=== PATIENT | female | born 1975 | race African-American/Black ===

== ENCOUNTER 2019-04-29 10:11 | Emergency (ER) | payer SELFPAY ==
--- NOTE | ~2019-04-29 | XR_ITS ---
EXAMINATION: XR chest 2V 04/29/2019 11:35 INDICATION: Comparison to multiple prior studies sequentially, with oldest reviewed study dated 05/31. PROCEDURE: 2 view chest COMPARISON: Comparison to multiple prior studies sequentially, with oldest reviewed study dated 06/2018. FINDINGS: The lungs are clear. The cardiomediastinal silhouette is within normal limits. There are no pleural effusions. There is no pneumothorax suspected. IMPRESSION: 1: NO ACUTE CARDIOPULMONARY DISEASE. Reviewed, dictated and finalized at location A.
[2019-04-29 10:38] VITALS: BP 136/56; PULSE 87; RESP 20; TEMP 36.7; O2SAT 98
--- NOTE | 2019-04-29 11:16 | ED.URI ---
HPI - URI/Sore Throat General Chief Complaint: Upper Respiratory Infection Stated Complaint: neck pain, fever Time Seen by Provider: 04/29/19 11:13 Source: patient and RN notes reviewed Mode of arrival: ambulatory Limitations: no limitations History of Present Illness HPI Narrative: Pt is a 43 y/o female presenting to the ED c/o fever. Pt reports she started experiencing a subjective fever for 3 days. Pt states she last felt a fever this morning around 0300, but notes she has never checked her temperature. Pt also reports cough, diaphoresis, chills, ST, rhinorrhea, wheezing, and SOB, but denies otalgia or vomiting. Pt notes today she has taken Tylenol at 0300 and 0600, and Theraflu at 0900. Pt states she works as a [employer]. Pt reports Hx's of HTN and Gastritis. Pt notes she has never been a smoker. Pertinent past history: other (HTN; Gastritis) Onset (ago): day(s) (3) Associated symptoms: chills, diaphoresis, rhinorrhea, sore throat, cough, shortness of breath and other (Wheezing) Related Data Allergies Allergy/AdvReac Type Severity Reaction Status Date / Time No Known Allergies Allergy Unknown Verified 03/27/18 21:35 Review of Systems Review of Systems: All systems reviewed & are unremarkable except as noted in HPI and below Constitutional: Constitutional: Reports chills and Reports fever(s) (Subjective) ENT: Denies otalgia, Reports sore throat and Reports other (Rhinorrhea) Cardiovascular: Cardiovascular: Reports diaphoresis Respiratory: Respiratory: Reports cough, Reports dyspnea and Reports wheezing Gastrointestinal: Gastrointestinal: Denies vomiting PMFSH Past Medical History Medical History Gastritis HTN (hypertension) Surgical History Surgical History History of History of cholecystectomy Social History Social History Smoking status: Never smoker Gender identity (if verbalized by the patient): Female Exam Narrative: Exam Narrative: GENERAL: Well-appearing, well-nourished, and in no acute distress. HEAD: Normocephalic, atraumatic EYES: PERRLA and EOMI, conjunctiva clear without discharge EARS: TM's clear bilaterally without erythema or dullness NOSE: Nares clear, no rhinorrhea or epistaxis THROAT:Mucous membranes moist, Oropharynx normal without erythema, exudate, peritonsillar swelling or fluctuance NECK: Supple, without lymphadenopathy or mass RESPIRATORY: No respiratory distress, Airway patent, Respirations non-labored, Clear to auscultation without rales, rhonchi or wheeze, diminished bilaterally HEART: Regular rate and rhythm. No murmur heard. Normal peripheral pulses. ABDOMEN: Soft, nontender, nondistended, normal active bowel sounds. No masses. No rebound or guarding, No organomegaly. EXTREMITIES: No edema, normal strength with full range of motion. SKIN: Warm, dry, normal color without rash NEURO: Alert and oriented x3. CN 2-12 grossly intact. No focal deficits. PSYCH: Normal mood and affect. Course Reevaluation(s) Reevaluation #1: I have discussed with patient that labs are unremarkable and she has viral uri. I had discussed discharge plan and managment. Date: 04/29/19 Time: 11:48 Vital Signs Vital signs: Vital Signs Temperature 98.0 F 04/29/19 10:38 Pulse Rate 87 04/29/19 10:38 Respiratory Rate 20 04/29/19 10:38 Blood Pressure 136/56 L 04/29/19 10:38 Pulse Oximetry 98 04/29/19 10:38 Temperature 98.0 F 04/29/19 11:59 Pulse Rate 80 04/29/19 11:59 Respiratory Rate 20 04/29/19 11:59 Blood Pressure 120/77 04/29/19 11:59 Pulse Oximetry 99 04/29/19 11:59 MDM - URI/Sore Throat Lab Data Labs: Influenza A Screen Negative Reference Range: Negative Influenza B Screen Negative Reference Range: Negative Strep Screen Presumptive Negative *(Reference Ra
[2019-04-29 11:59] VITALS: BP 120/77; PULSE 80; RESP 20; TEMP 36.7; O2SAT 99
== END 2019-04-29 12:00 | disposition home or self-care (01) ==
PROVIDERS: Emergency Provider General Practice; PCP Internal Medicine Infectious Disease
DX: J06.9 Acute upper respiratory infection, unspecified (principal)
CPT/HCPCS: 71046; 87081; 87804; 87880; 99283

== ENCOUNTER 2020-08-21 05:37 | Emergency (ER) | payer BC, SELFPAY ==
[2020-08-21 05:44] VITALS: BP 159/108; PULSE 102; RESP 18; TEMP 36.6; O2SAT 98
--- NOTE | 2020-08-21 06:13 | ED.URI ---
HPI - URI/Sore Throat General Chief Complaint: Upper Respiratory Infection Stated Complaint: sore throat x 2 days,cough Time Seen by Provider: 08/21/20 06:06 Source: patient and RN notes reviewed Mode of arrival: ambulatory Limitations: no limitations History of Present Illness HPI Narrative: THis is a 44 year old female who presents for evaluation of URI symptoms for 2 days. She reports runny nose, sinus drainage, sore throat and cough. She denies fever or chills. She states she has been gargling and taking zyrtec without relief. Related Data Home Medications Medication Instructions Recorded Confirmed aspirin 08/21/20 08/21/20 cholecalciferol (vitamin D3) 08/21/20 famotidine 08/21/20 hydrochlorothiazide 08/21/20 losartan 08/21/20 losartan 08/21/20 potassium chloride meq PO 08/21/20 Allergies Allergy/AdvReac Type Severity Reaction Status Date / Time hydrocodone AdvReac Gastrointestinal Verified 08/21/20 05:47 Upset Review of Systems Review of Systems: All systems reviewed & are unremarkable except as noted in HPI and below Constitutional: Constitutional: Denies chills and Denies fever(s) Eyes: Eyes: Denies change in vision ENT: Reports nasal congestion and Reports sore throat Cardiovascular: Cardiovascular: Reports chest pain (chronic) Respiratory: Respiratory: Reports cough and Reports dyspnea (chronic due to asthma) Gastrointestinal: Gastrointestinal: Denies abdominal pain, Denies nausea and Denies vomiting PMF Past Medical History Medical History (Updated 08/21/20 @ 06:29 by Sushma Watters MD) Gastritis HTN (hypertension) Surgical History Surgical History History of History of cholecystectomy Social History Social History Smoking status: Never smoker Gender identity (if verbalized by the patient): Female Exam Const: General: no acute distress and alert Orientation/consciousness: patient oriented x3 HENMT: Head: normocephalic and atraumatic Ears: TM's normal bilaterally Face and sinus: sinuses nontender and face symmetric Mouth: Yes Normal oral and palatal mucosa present, Yes lip normal, Yes oropharynx normal, Yes moist mucous membranes, No trismus and No restricted motion Throat: tonsils normal, uvula midline, postnasal drainage and no uvular edema Eyes: EOM: EOMs intact bilaterally Resp: Effort & Inspection: normal respiratory effort and no retractions Auscultation: clear to auscultation bilaterally Cardio: Rate: regular rate Rhythm: regular rhythm Heart sounds: no murmurs Skin: General skin exam: normal color Rashes: no rashes Neuro: General: patient oriented x3, moves all extremities and No CN's II-XI intact bilaterally Course Reevaluation(s) Reevaluation #1: I have discussed with patient strep is negative and her URI symptoms are mostly viral. She states she does not think she has covid and she is vaccinated. She understands treatment is symptom management. Date: 08/21/20 Time: 06:27 Vital Signs Vital signs: Vital Signs Temperature 97.9 F 08/21/20 05:44 Pulse Rate 102 H 08/21/20 05:44 Respiratory Rate 18 08/21/20 05:44 Blood Pressure 159/108 H 08/21/20 05:44 Pulse Oximetry 98 08/21/20 05:44 Temperature 97.9 F 08/21/20 05:44 Pulse Rate 71 08/21/20 06:40 Respiratory Rate 14 08/21/20 06:40 Blood Pressure 138/74 08/21/20 06:40 Pulse Oximetry 97 08/21/20 06:40 MDM - URI/Sore Throat Lab Data Labs: Strep Screen Presumptive Negative *(Reference Range: Negative)* Strep Screen Presumptive Negative *(Reference Range: Negative)* Discharge Plan Discharge Clinical Impression: Upper respiratory infection Qualifiers: URI type: unspecified viral URI Qualified Code(s): J06.9 - Acute u
[2020-08-21 06:40] VITALS: BP 138/74; PULSE 71; RESP 14; O2SAT 97
== END 2020-08-21 06:40 | disposition home or self-care (01) ==
PROVIDERS: Emergency Provider General Practice; PCP Internal Medicine Infectious Disease
DX: J06.9 Acute upper respiratory infection, unspecified (principal); Z79.82 Long term (current) use of aspirin; I10 Essential (primary) hypertension
CPT/HCPCS: 87081; 87880; 99283

== ENCOUNTER 2021-09-27 15:32 | Emergency (ER) | payer BC, SELFPAY ==
--- NOTE | ~2021-09-27 | XR_ITS ---
EXAM: XR toe 1st LT min 2V DATE: 09/27/2021 17:46 HISTORY: PAIN/BRUSING TO MEDIAL SIDE OF 1ST DIGIT X 6 MONTHS . COMPARISON: None available. FINDINGS: Normal mineralization. No fracture or dislocation. No lytic or blastic lesion. Mild scatte red degenerative changes. No erosion or periosteal change. Soft tissues within normal limits. IMPRESSION: No acute osseous finding in the left first toe. Reviewed, dictated and finalized at location K.
[2021-09-27 16:16] VITALS: BP 135/87; PULSE 88; RESP 14; TEMP 36.7; O2SAT 100
--- NOTE | 2021-09-27 17:57 | ED.LOWEXIN ---
HPI - Extremity Injury (Lower) General Chief Complaint: Extremity Injury, Lower Stated Complaint: L. toe pain Time Seen by Provider: 09/27/21 17:31 Source: patient Mode of arrival: ambulatory Limitations: no limitations History of Present Illness HPI Narrative: This is a 45 year old female that presents to the ER for left great toe pain ongoing for several months. Reports acute worsening today. No recent injury or trauma. Reports some swelling to the area. Pain with even light touch. Denies fevers or erythema. Related Data Home Medications Medication Instructions Recorded Confirmed aspirin 81 mg tablet,delayed 08/21/20 08/21/20 release cholecalciferol (vitamin D3) 1,250 08/21/20 mcg (50,000 unit) capsule famotidine 40 mg tablet 08/21/20 hydrochlorothiazide 25 mg tablet 08/21/20 losartan 25 mg tablet 08/21/20 losartan 50 mg tablet 08/21/20 potassium chloride 20 mEq meq PO 08/21/20 tablet,extended release(part/cryst) Allergies Allergy/AdvReac Type Severity Reaction Status Date / Time hydrocodone AdvReac Gastrointestinal Verified 09/27/21 17:49 Upset Review of Systems Review of Systems: CONSTITUTIONAL: Denies fever SKIN: Denies rash MUSCULOSKELETAL: Reports joint pain, and myalgia. NEUROLOGIC: Denies numbness All systems reviewed & are unremarkable except as noted in HPI and below PMFSH Past Medical History Medical History (Updated 09/27/21 @ 19:18 by Farideh Brumfield PA-C) Gastritis HTN (hypertension) Surgical History Surgical History History of History of cholecystectomy Social History Social History Smoking status: Never smoker Gender identity (if verbalized by the patient): Female Exam Narrative: GENERAL: Well-appearing, well-nourished, and in no acute distress. HEAD: Normocephalic, atraumatic. EYES: EOMI. EXTREMITIES: Normal range of motion. No edema, erythema or warmth. Left first MTP joint tender to palpation. Normal DP pulses. Normal sensation SKIN: Warm, dry, no rash. NEURO: No focal deficits. Alert and oriented x3. PSYCH: Normal mood and affect Course Vital Signs Vital signs: Vital Signs Temperature 98.0 F 09/27/21 16:16 Pulse Rate 88 09/27/21 16:16 Respiratory Rate 14 09/27/21 16:16 Blood Pressure 135/87 09/27/21 16:16 Pulse Oximetry 100 09/27/21 16:16 Oxygen Delivery Room Air 09/27/21 16:16 Temperature 98.0 F 09/27/21 16:16 Pulse Rate 88 09/27/21 16:16 Respiratory Rate 14 09/27/21 16:16 Blood Pressure 135/87 09/27/21 16:16 Pulse Oximetry 100 09/27/21 16:16 Oxygen Delivery Room Air 09/27/21 16:16 MDM - Extremity Injury (Lower) MDM Narrative Medical decision making narrative: Patient presents to the emergency department for left great toe pain today. No recent injury or trauma. Patient is afebrile and nontoxic-appearing. CBC without leukocytosis. Metabolic panel with mild hypokalemia, patient given dose of potassium in the ED. Inflammatory markers are mildly elevated. Uric acid is high normal. Left first toe x-ray without acute osseous abnormalities. Patient was updated on case findings. Will be started on colchicine for probable gout flare. Unfortunately patient has history of gastritis, so is not able to take anti-inflammatories. Instructed to continue Tylenol as needed for pain at home. She is to follow-up with her primary care doctor and orthopedics. She was given warnings to return to the ER Lab Data Attestation: I reviewed the patient's lab results. Result diagrams: 09/27/21 18:07 09/27/21 18:07 Labs: Lab Results 09/27/21 09/27/21 Range/Units 18:07 18:07 WBC 9.2 (4.5-10.0) K/mm3 RBC 4.36 (4.2-5.4) M/mm3 Hgb 11.7 L (12.0-15.0) g/dL Hct 37.3 (37.0-47.0) % MCV 85.6 (80-100) fl MCH 26.8 (26-34) pg MCHC 31.4 L (32-36) g/d
[2021-09-27 18:13] LABS: Basophils Absolute Auto 0.1 K/mm3 (0.0-0.1); Basophils Percent Auto 0.7 % (0.2-1.2); Eosinophils Absolute Auto 0.2 K/mm3 (0-0.3); Eosinophils Percent Auto 2.5 % (0-4.4); Hematocrit 37.3 % (37.0-47.0); Hemoglobin 11.7 g/dL (12.0-15.0); Immature Granulocyte Absolute 0.04 K/mm3 (0.00-0.031); Immature Granulocyte Percent A 0.4 % (0-0.5); Lymphocytes Absolute Auto 2.72 K/mm3 (0.9-3.2); Lymphocytes Percent Auto 29.5 % (18.3-44.2); Mean Corpuscular HGB Conc 31.4 g/dl (32-36); Mean Corpuscular Hemoglobin 26.8 pg (26-34); Mean Corpuscular Volume 85.6 fl (80-100); Mean Platelet Volume 11.1 fl (7.4-10.4); Monocytes Absolute Auto 0.6 K/mm3 (0.1-0.6); Monocytes Percent Auto 6.8 % (2.6-8.5); Neutrophils Absolute Auto 5.5 K/mm3 (1.3-6.7); Neutrophils Percent Auto 60.1 % (45.5-73.1); Platelet Count Result 359 k/mm3 (150-375); Red Blood Count 4.36 M/mm3 (4.2-5.4); Red Cell Distribution Width 14.4 % (11.5-14.5); White Blood Count 9.2 K/mm3 (4.5-10.0)
[2021-09-27] MEDS: KETOROLAC 30 MG/ML VIAL (*BKC) IM (18:14)
[2021-09-27 18:25] LABS: Anion Gap 10 mmol/L (8-16); Blood Urea Nitrogen 13 mg/dL (7-17); CRP 1.5 mg/dL (<1.0); Calcium 9.3 mg/dL (8.4-10.2); Carbon Dioxide 30 mmol/L (22-30); Chloride 98 mmol/L (98-107); Estimated Glomerular Filt Rate > 60; Glucose 93 mg/dL (65-110); Potassium 3.1 mmol/L (3.4-5.0); Sodium 138 mmol/L (137-145); Uric Acid 7.5 mg/dL (2.5-7.5)
[2021-09-27 18:52] LABS: Erythrocyte Sedimentation Rate 40 mm/hr (0-20)
[2021-09-27] MEDS: POTASSIUM CHLORIDE 20 MEQ TABLET 40 MEQ PO (19:14)
[2021-09-27] MEDS: COLCHICINE 0.6 MG TABLET 1.2 MG PO (19:17)
[2021-09-27 19:35] VITALS: BP 130/84; PULSE 81; RESP 18; O2SAT 98
== END 2021-09-27 19:36 | disposition home or self-care (01) ==
PROVIDERS: Physician Assistant; Emergency Provider Emergency Medicine; PCP Internal Medicine Infectious Disease
DX: M79.675 Pain in left toe(s) (principal); I10 Essential (primary) hypertension
CPT/HCPCS: 36415; 73660; 80048; 84550; 85025; 85652; 86140; 96372; 99283; A9270; J1885

== ENCOUNTER 2021-09-28 21:32 | Emergency (ER) | payer BC, SELFPAY ==
[2021-09-28 21:42] VITALS: BP 146/91; PULSE 79; RESP 22; TEMP 36.4; O2SAT 98
--- NOTE | 2021-09-28 23:21 | ED.EXTPRO ---
HPI - Extremity Problem General Chief complaint: Extremity Problem,Nontraumatic Stated complaint: left foot pain, seen yesterday with gout Time Seen by Provider: 09/28/21 23:01 History of Present Illness HPI Narrative: 45-year-old female presenting the emergency department for evaluation of persistent foot pain. Patient was evaluated in the emergency department and diagnosed with gout. Patient has been taking Tylenol for pain control along with her colchicine but states that the pain has been persistent. Patient denies any worsening of the redness and denies any fevers. Patient denies any new injuries. Due to the patient's underlying gastritis she was not advised to use NSAIDs. Related Data Home Medications Medication Instructions Recorded Confirmed aspirin 81 mg tablet,delayed 08/21/20 08/21/20 release cholecalciferol (vitamin D3) 1,250 08/21/20 mcg (50,000 unit) capsule famotidine 40 mg tablet 08/21/20 hydrochlorothiazide 25 mg tablet 08/21/20 losartan 25 mg tablet 08/21/20 losartan 50 mg tablet 08/21/20 potassium chloride 20 mEq meq PO 08/21/20 tablet,extended release(part/cryst) Allergies Allergy/AdvReac Type Severity Reaction Status Date / Time hydrocodone AdvReac Gastrointestinal Verified 09/28/21 21:46 Upset Review of Systems Review of Systems: CONSTITUTIONAL: Denies fever, chills, or sweats. EYES: Denies visual changes, redness, or discharge. ENT: Denies rhinorrhea, congestion, sore throat, or otalgia. CARDIOVASCULAR: Denies chest pain, palpitations, or edema. RESPIRATORY: Denies cough or dyspnea. GASTROINTESTINAL: Denies abdominal pain, nausea, vomiting, or diarrhea. GENITOURINARY: Denies dysuria or hematuria. SKIN: Denies rash or itching. MUSCULOSKELETAL: Left great toe pain NEUROLOGIC: Denies headache, numbness, or weakness. PSYCHIATRIC: Denies anxiety or depression. [facility] Past Medical History Medical History (Updated 09/28/21 @ 23:28 by Nicolas Chavis MD) Gastritis HTN (hypertension) Surgical History Surgical History History of History of cholecystectomy Social History Social History Smoking status: Never smoker Gender identity (if verbalized by the patient): Female Exam Narrative: APPEARANCE: Well appearing, no pain, no distress, well-nourished. HEAD: normocephalic, atraumatic. EYES: PERRLA/EOMI, conjunctivae clear. NOSE: Normal no drainage NECK: Supple. No adenopathy, no masses. RESPIRATORY: Airway patent, respirations nonlabored. Clear to auscultation bilaterally, no rales, rhonchi, wheezing. CARDIOVASCULAR: Regular rate and rhythm without murmurs rubs or gallops. MUSCULOSKELETAL: Moves all extremities. Mild warmth associated with the base of the left great toe. No erythema. No significant edema of the foot. NEURO: Alert. Cranial nerves II through XII intact. Grossly intact SKIN: Warm, dry. Normal Color PSYCHIATRIC: Normal affect/mood. Course Course Emergency Course: Patient states she has had a previous adverse reaction of nausea when taking hydrocodone but states it does help with her pain control. Patient is willing to trial hydrocodone to see if this helps. Patient was provided [place] in the ED and also will be discharged with [place]. Patient was encouraged of close follow-up with her primary care physician. With patient will continue to take her colchicine. Patient was advised on reasons to return to the emergency department. All questions and concerns were addressed. Vital Signs Vital signs: Vital Signs Temperature 97.5 F L 09/28/21 21:42 Pulse Rate 79 09/28/21 21:42 Respiratory Rate 22 H 09/28/21 21:42 Blood Pressure 146/91 H 09/28/21 21:42 Pulse Oximetry 98 09/28/21 21:42 Oxygen Delivery Room Air 09/28/21 21:42 Temperature 97.5 F L 09/28/21 21:42 Pulse Rate 75 09/29/21 00:15 Respiratory Rate 18 09/29/21 00:15
[2021-09-29] MEDS: HYDROcodone/acetaminophen (*CRX) 5-325 MG TABLET 2 TAB PO (00:04)
[2021-09-29] MEDS: KETOROLAC 30 MG/ML VIAL (*BKC) IM (00:05)
[2021-09-29 00:15] VITALS: BP 136/103; PULSE 75; RESP 18; O2SAT 98
== END 2021-09-29 00:10 | disposition home or self-care (01) ==
PROVIDERS: Emergency Provider Emergency Medicine; PCP Internal Medicine Infectious Disease
DX: M79.675 Pain in left toe(s) (principal); Z79.82 Long term (current) use of aspirin; I10 Essential (primary) hypertension
CPT/HCPCS: 96372; 99283; A9270; J1885